=== PATIENT | female | born 1980 | race Two or more races ===

== ENCOUNTER 2020-10-04 08:20 | Day surgery (SDC) | payer OTHER | END 2020-10-04 12:43 | disposition home or self-care (01) | LOC: AMB-ENDOS 08:20 | PROVIDERS: ATTEND Surgery | DX: K57.20 Diverticulitis of large intestine with perforation and abscess without bleeding (principal); Z93.3 Colostomy status ==

== ENCOUNTER 2020-11-16 12:00 | Inpatient (IN) | payer OTHER ==
[~2020-11-16] VITALS: Ht 165.1 cm; Wt 90.7 kg
[2020-11-16] MEDS ORDERED: DEPAKOTE ER500 MG PO (16:44)
[2020-11-16] MEDS ORDERED: CLONAZEPAM1 M1 PO (16:44)
[2020-11-16] MEDS ORDERED: EFFEXOR XR37.5 MG PO (16:44)
[2020-11-16] MEDS ORDERED: [UNRECOGNIZED DRUG - OTHER] PO (16:45)
[2020-11-16] MEDS ORDERED: ABATINEX (16:46)
[2020-11-16] MEDS ORDERED: DESIREL (16:46)
[2020-11-16] MEDS ORDERED: PRILOSEC OTC20 MG PO (16:47)
[2020-11-16] MEDS ORDERED: PULMICORT FLE180 MCG IH (16:47)
[2020-11-16] MEDS ORDERED: NEURONTIN600 MG (16:47)
[2020-11-23] MEDS ORDERED: MONTELUKAST SOD10 MG (14:09)
[2020-11-23] MEDS ORDERED: OMEPRAZOLE40 MG (14:09)
[2020-11-23] MEDS ORDERED: TRAZODONE HCL100 MG (14:10)
[2020-11-23] MEDS ORDERED: OLANZAPINE10 MG (14:10)
[2020-11-23] MEDS ORDERED: SYMBICORT 16010.2 GM (14:10)
[2020-11-23] MEDS ORDERED: VENLAFAXINE HCL75 M1 (14:10)
[2020-11-23] MEDS ORDERED: ABATINEX680 MG (14:11)
[2020-12-02] MEDS ORDERED: COLACE100 MG PO (08:44)
[2020-12-02] MEDS ORDERED: PERCOCET 5-3251 EACH PO (08:44)
[2020-12-02] MEDS ORDERED: ACID REDUCER20 M1 PO (08:44)
[2020-12-02] MEDS ORDERED: INTESTINEX680 M1 PO (08:44)
== END 2020-12-02 10:22 | disposition home or self-care (01) | DRG 330 ==
LOC: SURG 11-23 06:58 → O/R 11-23 06:58 → SURH 11-23 10:30 → SURG 11-23 17:35
PROVIDERS: ADMIT Surgery; ATTEND Surgery
PROC: 0DTJ0ZZ Resection of Appendix, Open Approach (ICD-10-PCS; 2020-11-23)
PROC: 0DJD4ZZ Inspection of Lower Intestinal Tract, Percutaneous Endoscopic Approach (ICD-10-PCS; 2020-11-23)
PROC: 07BC0ZX Excision of Pelvis Lymphatic, Open Approach, Diagnostic (ICD-10-PCS; 2020-11-23)
PROC: 0DBU0ZX Excision of Omentum, Open Approach, Diagnostic (ICD-10-PCS; 2020-11-23)
PROC: 0DBN0ZZ Excision of Sigmoid Colon, Open Approach (ICD-10-PCS; principal; 2020-11-23 10:30)
PROC: 4A12X4Z Monitoring of Cardiac Electrical Activity, External Approach (ICD-10-PCS; 2020-11-24)
PROC: 3E0F7SF Introduction of Other Gas into Respiratory Tract, Via Natural or Artificial Opening (ICD-10-PCS; 2020-11-27)
DX: Z43.3 Encounter for attention to colostomy (principal); K91.71 Accidental puncture and laceration of a digestive system organ or structure during a digestive system procedure; K43.2 Incisional hernia without obstruction or gangrene; K66.0 Peritoneal adhesions (postprocedural) (postinfection); K38.8 Other specified diseases of appendix; K57.30 Diverticulosis of large intestine without perforation or abscess without bleeding; J45.20 Mild intermittent asthma, uncomplicated; Z53.31 Laparoscopic surgical procedure converted to open procedure; G47.33 Obstructive sleep apnea (adult) (pediatric); F32.9 Major depressive disorder, single episode, unspecified; Y83.8 Other surgical procedures as the cause of abnormal reaction of the patient, or of later complication, without mention of misadventure at the time of the procedure